=== PATIENT | female | born 1945 | race Caucasian/White ===

== ENCOUNTER → 2017-10-13 | Outpatient (CLI) | payer MEDICARE, BC ==
[2014-08-19 21:38] VITALS: BP 104/55
--- NOTE | 2017-10-13 09:20 | RAD ---
DATE: October 13, 2017 EXAM: MAMMO BAILEY SCREENING BILATERAL HISTORY: Routine Screening COMPARISON: October 11, 2016 This study was interpreted with the benefit of Computerized Aided Detection (CAD). Tomographic 3-D views are obtained. The breast parenchyma shows scattered fibroglandular densities. Breast parenchyma level B. FINDINGS: There is no suspicious findings. IMPRESSION: Normal. BI-RADS CATEGORY: 1 NEGATIVE RECOMMENDED FOLLOW-UP: 12M 12 MONTH FOLLOW-UP PQRS compliance statement: Patient information was entered into a reminder system with a target due date October 24, 2018 for the next mammogram. Mammography is a sensitive method for finding small breast cancers, but it does not detect them all and is not a substitute for careful clinical examination. A negative mammogram does not negate a clinically suspicious finding and should not result in delay in biopsying a clinically suspicious abnormality. "Our facility is accredited by the [employer] Mammography [employer]."
== END | disposition home or self-care (01) ==
LOC: MAMMO 07:55
PROVIDERS: ATTEND Internal Medicine Hematology & Oncology
DX: Z12.31 Encounter for screening mammogram for malignant neoplasm of breast (principal); F17.200 Nicotine dependence, unspecified, uncomplicated; Z85.9 Personal history of malignant neoplasm, unspecified
CPT/HCPCS: 77063; G0202; 77067

== ENCOUNTER → 2018-02-16 | Outpatient (CLI) | payer MEDICARE, BC ==
[2014-08-19 21:38] VITALS: BP 104/55
--- NOTE | 2018-02-16 12:15 | RAD ---
Bone densitometry scan, 02/16/2018: History: Ovarian failure, osteopenia The lumbar spine and right hip were examined utilizing a DEXA technique. The bone mineral density in the lumbar spine as measured from the L1-L4 levels is 0.79 g/sq cm. This yields a T score of -3.2 compatible with osteoporosis. This has worsened since the 02/13/2008 study at which time the lumbar spine T score was - 2.5. The total T score at the right hip is -3.0. This is compatible with osteoporosis. On the previous exam the average hip T score was -1.8 IMPRESSION: Worsening osteoporosis.
== END | disposition home or self-care (01) ==
LOC: DXRAD 10:45
PROVIDERS: ATTEND Specialist
DX: F33.1 Major depressive disorder, recurrent, moderate (principal); M81.0 Age-related osteoporosis without current pathological fracture; E28.39 Other primary ovarian failure
CPT/HCPCS: 77080

== ENCOUNTER → 2018-03-30 | Outpatient (CLI) | payer MEDICARE, BC ==
[2014-08-19 21:38] VITALS: BP 104/55
--- NOTE | 2018-03-30 16:59 | RAD ---
EXAM: Left lower extremity venous Doppler sonogram. HISTORY: Pain. TECHNIQUE: Wiggins scale and color Doppler sonographic evaluation of the left lower extremity veins with spectral waveform analysis was performed. FINDINGS: There is normal color flow, normal compressibility and there are normal spectral waveforms in the common femoral, superficial femoral, popliteal, posterior tibial and greater saphenous veins. There is a 6.4 x 3.8 x 0.8 cm complex left popliteal cyst. IMPRESSION: 1. No Doppler evidence of lower extremity deep venous thrombosis. 2. Complex left Mosley's cyst measuring 6.4 cm in maximum dimension. Electronically signed by: Remedios Puentes MD (03/30/2018 4:56 PM) [facility]
== END | disposition home or self-care (01) ==
LOC: US 15:58
PROVIDERS: ATTEND Nurse Practitioner Family
DX: M79.89 Other specified soft tissue disorders (principal); M71.22 Synovial cyst of popliteal space [Baker], left knee
CPT/HCPCS: 93971

== ENCOUNTER → 2018-04-12 | Outpatient (CLI) | payer MEDICARE, BC ==
[2014-08-19 21:38] VITALS: BP 104/55
--- NOTE | 2018-04-12 12:41 | RAD ---
PQRS Compliance Statement: One or more of the following individualized dose reduction techniques were utilized for this examination: 1. Automated exposure control 2. Adjustment of the mA and/or kV according to patient size 3. Use of iterative reconstruction technique CT chest without contrast 04/12/2018 INDICATION: Lung nodules. COMPARISON: CT chest December 10, 2013. TECHNIQUE: Multiple axial CT images of the chest were obtained without intravenous contrast. Coronal and sagittal reformats are provided. FINDINGS: The thyroid gland is normal in appearance. There are no pathologically enlarged axillary, mediastinal or hilar lymph nodes. Heart size is within normal limits. There is no pericardial effusion. Thoracic aorta is normal in course and caliber. There is mild centrilobular pulmonary emphysema. There is a 3 mm solid noncalcified pleura nodule in the left upper lobe (series 2, image 58) patchy groundglass changes are noted in the right middle lobe. There is focal consolidation involving the superior segment of the right lower lobe which may represent postobstructive atelectasis from endobronchial filling defects suggestive of mucous plugging. There is bronchial wall thickening compatible with bronchitis. There is an oval solid noncalcified pulmonary nodule measuring 9 mm in the right lower lobe (series 2, image 214). There are no pleural effusions. No pulmonary vascular congestion or pneumothorax. Evaluation of the solid abdominal viscera is limited by lack of intravenous contrast. Visualized portions of the upper abdomen are normal. Spinal augmentation changes are identified at T8. No suspicious osseous abnormality is visualized. IMPRESSION: 1. Consolidation involving the superior segment right lower lobe is favored to be secondary to postobstructive atelectasis from endobronchial nodules most suggestive of mucous plugging. Short-term follow-up chest CT is recommended to exclude an endobronchial malignancy. 2. No pathologically enlarged thoracic lymph nodes are visualized. 3. 9 mm solid noncalcified pulmonary nodule is identified in the right lower lobe. This finding is stable and favor to represent benign etiology given stability. No new or enlarging solid noncalcified pulmonary nodules are visualized. Electronically signed by: Mame Hatfield MD (04/12/2018 12:37 PM) [id number]
== END | disposition home or self-care (01) ==
LOC: CT 10:45
PROVIDERS: ATTEND Specialist
DX: J18.1 Lobar pneumonia, unspecified organism (principal); J98.4 Other disorders of lung
CPT/HCPCS: 71250

== ENCOUNTER → 2018-06-16 | Outpatient (CLI) | payer MEDICARE, BC ==
[2014-08-19 21:38] VITALS: BP 104/55
--- NOTE | 2018-06-16 15:03 | RAD ---
Examination: Ultrasound left antecubital fossa region HISTORY: History of lump in the left antecubital fossa region COMPARISON: None available FINDINGS: In the region of perceived lump in the left antecubital fossa no definite evidence of mass or lesion identified IMPRESSION: No definite evidence of mass lesion identified in the visualized left antecubital fossa region. Electronically signed by: Nasir Day MD (06/16/2018 3:00 PM) [id number]
== END | disposition home or self-care (01) ==
LOC: US 12:56
PROVIDERS: ATTEND Specialist
DX: R22.32 Localized swelling, mass and lump, left upper limb (principal); Z87.891 Personal history of nicotine dependence
CPT/HCPCS: 76881

== ENCOUNTER → 2018-10-17 | Outpatient (CLI) | payer MEDICARE, BC ==
[2014-08-19 21:38] VITALS: BP 104/55
--- NOTE | 2018-10-18 13:46 | RAD ---
DATE: October 17, 2018 EXAM: MAMMO BAILEY SCREENING BILATERAL HISTORY: Screening study. COMPARISON: 2016 and 2017 This study was interpreted with the benefit of Computerized Aided Detection (CAD). 2-D digital mammographic views of both breasts were performed in the CC and MLO projections. 3-D digital tomosynthesis images of both breasts were performed in the CC and MLO projections and reviewed on a computer workstation. FINDINGS: Breast Density: SCATTERED The breast parenchyma shows scattered fibroglandular densities. Breast parenchyma level B.. There are no dominant suspicious masses, suspicious microcalcifications or evidence of architectural distortion. IMPRESSION: No mammographic indicators for malignancy. BI-RADS CATEGORY: 1 NEGATIVE RECOMMENDED FOLLOW-UP: 12M 12 MONTH FOLLOW-UP PQRS compliance statement: Patient information was entered into a reminder system with a target due date October 18, 2019 for the next mammogram. Mammography is a sensitive method for finding small breast cancers, but it does not detect them all and is not a substitute for careful clinical examination. A negative mammogram does not negate a clinically suspicious finding and should not result in delay in biopsying a clinically suspicious abnormality. "Our facility is accredited by the [employer] Mammography Program." The patient's breast density may affect the ability of mammography to detect breast cancer. There are 4 categories of breast density, A, B, C and D. Breast density A means that most of the breast tissue is replaced with adipose tissue and therefore is not dense. Breast density B means that the breast tissue is mildly dense and scattered. Breast density C means that the breast tissue is heterogeneously dense. Breast density D means that the breast tissue is very dense. Breast densities especially C and D may decrease the sensitivity of mammography to detect breast cancer. Therefore, the patient may benefit from 3-D breast mammography (3D breast tomography) as a part of their screening mammogram. Insurance may or may not pay for this additional imaging. The patient's breast density based on today's mammogram is category B.
== END | disposition home or self-care (01) ==
LOC: MAMMO 11:34
PROVIDERS: ATTEND Internal Medicine Hematology & Oncology
DX: Z12.31 Encounter for screening mammogram for malignant neoplasm of breast (principal)
CPT/HCPCS: 77063; 77067

== ENCOUNTER 2019-08-10 11:19 | Emergency (ER) | payer MEDICARE, BC ==
[2019-08-10 11:35] VITALS: BP 156/82
[2019-08-10] MEDS ORDERED: IV NORMAL SALINE 1,000ML 1,000 ML IV SCH (11:40)
--- NOTE | 2019-08-10 12:12 | RAD ---
EXAM: Head CT without contrast. HISTORY: Headache. TECHNIQUE: Computed tomographic images of the head were obtained without contrast. *One or more of the following individualized dose reduction techniques were utilized for this examination: 1. Automated exposure control. 2. Adjustment of the mA and/or kV according to patient size. 3. Use of iterative reconstruction technique. COMPARISON: None. FINDINGS: There is no acute or subacute extra-axial or intraparenchymal hemorrhage. There is no mass effect or midline shift. There is no hydrocephalus. There are areas of decreased attenuation within the cerebral white matter, nonspecific and likely related to chronic small vessel disease. There is cerebral volume loss. The visualized portions of the orbits, paranasal sinuses and mastoid air cells are unremarkable. No suspicious calvarial lesion is seen. IMPRESSION: 1. No acute intracranial finding. Note is made that MRI is more sensitive for acute infarction. 2. Decreased aeration within the cerebral white matter, likely due to chronic small vessel disease. 3. Cerebral volume loss. Electronically signed by: Remedios Puentes MD (08/10/2019 12:09 PM) [email or web address]
[2019-08-10 12:17] LABS: HEMOGLOBIN ISTAT 12.6 gm/dL; POTASSIUM ISTAT 4.5 mmol/L (3.5-5.0)
[2019-08-10 12:23] LABS: BASO % 1 % (0-3); EOS # 0.1 x10^3/uL (0.0-0.7); EOS % 2 % (0-3); HEMATOCRIT 37.5 % (36.0-47.0); HEMOGLOBIN 12.4 g/dL (12.0-15.5); LYMPH % 15 % (24-48); MEAN CORPUSCULAR HEMOGLOBIN 31 pg (25-35); MEAN CORPUSCULAR HGB CONC 33 g/dL (31-37); MEAN CORPUSCULAR VOLUME 94 fL (79-100); MONO # 0.7 x10^3/uL (0.0-1.1); MONO % 11 % (0-9); NEUT # 4.8 x10^3uL (1.8-7.7); NEUT % 71 % (31-73); PLATELET COUNT 301 x10^3/uL (140-400); RED CELL DISTRIBUTION WIDTH 13.9 % (11.5-14.5); WHITE BLOOD COUNT 6.7 x10^3/uL (4.0-11.0)
--- NOTE | 2019-08-10 12:47 | RAD ---
EXAM: Chest, 2 views. HISTORY: Weakness. COMPARISON: 04/12/2018 FINDINGS: 2 views of the chest are obtained. There is suspected right middle lobe and lingular scarring or atelectasis. There is suspected blunting of the right costophrenic angle due to basilar pleural proximal scarring. There is no infiltrate, pleural effusion or pneumothorax. The heart is normal in size. There is a midthoracic wedge compression fracture with vertebroplasty changes. IMPRESSION: 1. Suspected right middle lobe and lingular scarring or atelectasis. 2. Suspected right basilar pleural-parenchymal scarring. Electronically signed by: Remedios Puentes MD (08/10/2019 12:44 PM) [place] [id number]
--- NOTE | 2019-08-10 12:54 | PHYS DOC ---
Past History Past Medical History: Anxiety, Cancer, GERD Additional Past Medical Histor: non-Hodgkin's lymphoma Past Surgical History: Cancer Surgery Additional Past Surgical Histo: left masectomy/lymphectomy Smoking: Non-smoker Alcohol Use: None Drug Use: None Adult General Chief Complaint Chief Complaint: WEAKNESS/GENERALIZED HPI HPI Patient is a 73-year-old female presents with fatigue over the past several months, she has had headaches in the forehead for the past week continuously. She has had balance issues with almost following twice in the past 2 weeks. Her 's report she has wheezing at night. Patient denies any wheezing during the daytime. She is noted a decrease in appetite over the past several months. No recent changes in medicines. No chest pain or palpitations. No coughing. No fevers. No swelling in legs feet or ankles. She has remote history of non-Hodgkin's lymphoma in 2005, had a lymph node in the left arm removed and 25 radiation treatments She is here because she cannot be seen by her primary care physician for another 5 days.[] Review of Systems Review of Systems Constitutional: Denies fever or chills [] Eyes: Denies change in visual acuity, redness, or eye pain [] HENT: Denies nasal congestion or sore throat [] Respiratory: Denies cough or shortness of breath [] Cardiovascular: No chest pain or palpitations[] GI: Denies abdominal pain, nausea, vomiting, bloody stools or diarrhea [] : Denies dysuria or hematuria [] Musculoskeletal: Denies back pain or joint pain [] Integument: Denies rash or skin lesions [] Neurologic: See history of present illness[] Endocrine: Denies polyuria or polydipsia [] All other systems were reviewed and found to be within normal limits, except as documented in this note. Current Medications Current Medications Current Medications Medications (Trade) Dose Ordered Sig/Ashly Start Time Stop Time Status Last Admin Dose Admin Sodium Chloride 1,000 ml @ 100 mls/hr Q10H 08/10/19 11:40 08/10/19 21:39 08/10/19 11:40 100 MLS/HR Allergies Allergies Allergies Coded Allergies Type Severity Reaction Last Updated Verified Varenicline Allergy Intermediate Unknown 08/19/14 Yes Physical Exam Physical Exam Constitutional: Well developed, well nourished, no acute distress, non-toxic appearance. [] HENT: Normocephalic, atraumatic, bilateral external ears normal, oropharynx moist, no oral exudates, nose normal. [] Eyes: PERRLA, EOMI, conjunctiva normal, no discharge. [] Neck: Normal range of motion, no tenderness, supple, no stridor. [] Cardiovascular:Heart rate regular rhythm, no murmur [] Lungs & Thorax: Bilateral breath sounds clear to auscultation [] Abdomen: Bowel sounds normal, soft, no tenderness, no masses, no pulsatile masses. [] Skin: Warm, dry, no erythema, no rash. [] Back: No tenderness, no CVA tenderness. [] Extremities: No tenderness, no cyanosis, no clubbing, ROM intact, no edema. [] Neurologic: Alert and oriented X 3, normal motor function, normal sensory function, no focal deficits noted. [] Psychologic: Affect normal, judgement normal, mood normal. [] Current Patient Data Vital Signs Vital Signs Date Time Temp Pulse Resp B/P (MAP) Pulse Ox O2 Delivery O2 Flow Rate FiO2 08/10/19 11:35 99.4 76 18 93 Room Air Lab Results Laboratory Tests Test 08/10/19 11:56 POC Hemoglobin 12.6 gm/dL POC Hematocrit 37 % POC Sodium 135 mmol/L (135-145) POC Potassium 4.5 mmol/L (3.5-5.0) POC Chloride 98 mmol/L (98-110) POC Total CO2 28 mmol/L (23-32) Anion Gap 14 mmol/L (6-14) POC Blood Urea Nitrogen 6 mg/dL (8-26) L POC Creatinine 0.7 mg/dL (0.5-1.4) Glucose Level 96 mg/dL (60-99) POC Ionized Calcium (Nova) 1.11 mmol/L (1.13-1.32) L POC Troponin I 0.00 ng/ml (<0.08) EKG EKG EKG shows sinus rhythm at 67 bpm, normal axis, QTC of 438 ms, no ST lesions. Interpreted by me at 1150.[] Radiology/Procedures Radiology/Procedures PROCEDURE: CHEST PA & LATERAL EXAM: Chest, 2 views. HISTORY: Weakness. COMPARISON: 04/12/2018 FINDINGS: 2 views of the chest are obtained. There is suspected right middle lobe and lingular scarring or atelectasis. There is suspected blunting of the right costophrenic angle due to basilar pleural proximal scarring. There is no infiltrate, pleural effusion or pneumothorax. The heart is normal in size. There is a midthoracic wedge compression fracture with vertebroplasty changes. IMPRESSION: 1. Suspected right middle lobe and lingular scarring or atelectasis. 2. Suspected right basilar pleural-parenchymal scarring. PROCEDURE: CT HEAD WO CONTRAST EXAM: Head CT without contrast. HISTORY: Headache. TECHNIQUE: Computed tomographic images of the head were obtained without contrast. *One or more of the following individualized dose reduction techniques were utilized for this examination: 1. Automated exposure control. 2. Adjustment of the mA and/or kV according to patient size. 3. Use of iterative reconstruction technique. COMPARISON: None. FINDINGS: There is no acute or subacute extra-axial or intraparenchymal hemorrhage. There is no mass effect or midline shift. There is no hydrocephalus. There are areas of decreased attenuation within the cerebral white matter, nonspecific and likely related to chronic small vessel disease. There is cerebral volume loss. The visualized portions of the orbits, paranasal sinuses and mastoid air cells are unremarkable. No suspicious calvarial lesion is seen. IMPRESSION: 1. No acute intracranial finding. Note is made that MRI is more sensitive for acute infarction. 2. Decreased aeration within the cerebral white matter, likely due to chronic small vessel disease. 3. Cerebral volume loss.[] Course & Med Decision Making Course & Med Decision Making Pertinent Labs and Imaging studies reviewed. (See chart for details) ED course: Patient arrived, was placed in bed, and tolerated exam well. She was transported to and from radiology with any complications. After the return of the lab and imaging findings, these were discussed with the patient and family who voiced understanding. All questions were answered. She was discharged in improved condition. Medical decision making: Patient with malaise and a headache that has been present for a while. There is no significant systemic toxicity. No evidence of intracranial mass or bleed. No evidence of an acute coronary syndrome. Patient appears to have a urinary tract infection although this may be a contaminated specimen however will treat for it. She will need to follow-up with her regular doctor in 5 days as scheduled.[] Dragon Disclaimer Dragon Disclaimer This electronic medical record was generated, in whole or in part, using a voice recognition dictation system. Departure Departure: Impression: Primary Impression: Malaise and fatigue Additional Impressions: Headache Urinary tract infection Disposition: 01 HOME, SELF-CARE Condition: IMPROVED Referrals: LISSETH BERNARDO MD (PCP) Follow-up in 2 days Patient Instructions: Fatigue, General Headache Without Cause, Urinary Tract Infection Additional Instructions: Follow-up with your regular doctor as scheduled. Drink plenty of fluids. Return to the ER if worsening pain or any other concerns. Scripts Meloxicam (MELOXICAM) 7.5 Mg Tablet 7.5 MG PO DAILY for PAIN, #20 TAB Prov: BRAYDON LIEBERMAN DO 08/10/19 Sulfamethoxazole/Trimethoprim (BACTRIM DS TABLET) 1 Each Tablet 1 TAB PO BID for urinary tract infection, #20 TAB Prov: BRAYDON LIEBERMAN DO 08/10/19 Problem Qualifiers Additional Impressions: Headache Headache type: unspecified Headache chronicity pattern: acute headache Intractability: not intractable Qualified Codes: R51 - Headache Urinary tract infection Urinary tract infection type: site unspecified Hematuria presence: without hematuria Qualified Codes: N39.0 - Urinary tract infection, site not specified BRAYDON LIEBERMAN DO Aug 10, 2019 12:54
[2019-08-10 13:53] LABS: ALBUMIN 3.8 g/dL (3.4-5.0); TOTAL BILIRUBIN 0.6 mg/dL (0.2-1.0); TOTAL PROTEIN 7.7 g/dL (6.4-8.2)
[2019-08-10 13:54] LABS: MAGNESIUM 2.1 mg/dL (1.8-2.4)
[2019-08-10 15:04] LABS: BILIRUBIN,URINE NEG (NEG); CLARITY,URINE HAZY; COLOR,URINE YELLOW; GLUCOSE,URINE NEG (NEG)
[2019-08-10 15:05] LABS: BACTERIA,URINE MOD /HPF (0-FEW); NITRITE,URINE NEG (NEG); RBC,URINE OCC /HPF (0-2); SQUAMOUS EPITHELIAL CELL,UR MOD /LPF; UROBILINOGEN,URINE 1 mg/dL (0.2 mg/dL)
[2019-08-10] MEDS ORDERED: MELO7.5T29 PO (15:11)
[2019-08-10] MEDS ORDERED: SULF1TAB24 PO (15:11)
--- NOTE | 2019-08-10 15:23 | EKG ---
[address] [address] Test Date: 2019-08-10 Test Time: 11:49:53 Pat Name: LAQUITA LAINEZ Department: Room: Gender: F Transmission Tester: JOHANNA : 1945 Requested By: BRAYDON LIEBERMAN Order Number: [id number] Reading MD: Jerad Stephens MD Measurements Intervals [place] Rate: 67 P: 58 [place]: 164 QRS: 82 QRSD: 90 T: 49 QT: 412 QTc: 438 Interpretive Statements SINUS RHYTHM NON-SPECIFIC ST/T CHANGES Electronically Signed On 08-21-2019 9:35:36 CDT by Jerad Stephens MD
== END 2019-08-10 15:21 | disposition home or self-care (01) ==
LOC: ER 11:19
DX: N39.0 Urinary tract infection, site not specified (principal); R51 Headache; R53.83 Other fatigue; R53.81 Other malaise; K21.9 Gastro-esophageal reflux disease without esophagitis; Z88.1 Allergy status to other antibiotic agents; Z85.72 Personal history of non-Hodgkin lymphomas
CPT/HCPCS: 36415; 70450; 71046; 80047; 80076; 81001; 83690; 83735; 83880; 84443; 84484; 85025; 85610; 85730; 87086; 93005; 99285-25; J7030

== ENCOUNTER → 2019-11-09 | Outpatient (CLI) | payer MEDICARE, BC ==
[~2019-11-09] MED LIST: MELO7.5T29 PO; SULF1TAB24 PO
--- NOTE | 2019-11-09 14:38 | RAD ---
Examination: BREAST RIGHT History: Abnormal mammogram Comparison/Correlation: 10/01/2015, 10/11/2016, 10/13/2017, 10/17/2018, 10/18/2019 screen mammographic exam performed at an outside institution Findings: Ultrasound imaging was performed through the 4:00 to 7:00 region of the right breast. No mass identified corresponding with mammographic mass evident. Impression: BI-RADS Category 3-probably benign. Six-month follow-up mammographic and possibly ultrasound examination of the right breast is recommended to assess stability. The very small mass present as been noted on prior exams including 2016 with very slow growth. Electronically signed by: Nam Rubio MD (11/09/2019 2:35 PM) [facility]
== END | disposition home or self-care (01) ==
LOC: US 13:00
PROVIDERS: ATTEND Specialist
DX: R92.2 Inconclusive mammogram (principal)
CPT/HCPCS: 76641

== ENCOUNTER → 2020-04-18 | Day surgery (SDC) | payer MEDICARE, BC ==
[~2020-04-18] MED LIST changes: +ALBU2.5V8 IH; +CLON0.5T4 PO; +FLUT16SP21 NS; +IV RINGERS SOLUTION,LACTATED 1,000 ML IV SCH; +OMEP20CA16 PO; +ONDANSETRON PF 4 MG/2 ML VIAL. IV PRN; +OXYB5TAB10 PO; +PROPOFOL 10,000 MCG/ML (20ML) VIAL IV ONE; +SERT100T PO; +SODIUM PHOSPHATES 19/7GM 133 ML ENEMA. PR ONE
[2020-04-18 14:21] VITALS: BP 114/57
--- NOTE | 2020-04-22 14:07 | PATHOLOGY ---
[facility] Accession Number: [id number] . 01 Material submitted: . PART A: gastrointestinal site - ANTRUM GASTRITIS PART B: colon - DESCENDING POLYP. Modifiers: descending . 02 Diagnosis: A. Gastric biopsies, antrum: - Chronic gastritis, mild. . B. Colon biopsies, descending colon polyp: - Tubular adenoma. (JPM:maura; 04/22/2020) QMS 04/22/2020 0920 Local . 02 Comment: Sections of the gastric antral biopsy show congestion and mild chronic inflammation. A properly controlled immunoperoxidase stain for Helicobacter is negative for Helicobacter organisms. . Sections of the descending colon biopsy reveal a tubular adenoma showing no high grade dysplasia or evidence of malignancy. (JPM:maura; 04/22/2020) . Special stain performed: Immunoperoxidase stain for Helicobacter on A1 . 02 Electronically signed: . Roman Rodriguez MD, Pathologist NPI- [id number] . 01 Gross description: . A. The specimen is received in formalin labeled "Aida, Michelle, antrum/gastritis was "and consists of a fragment of starr tissue measuring 0.3 x 0.3 x 0.2 cm which are entirely submitted in A1. . B. The specimen is received in formalin labeled "Leslie, Michelle, descending colon" and consists of multiple fragments of starr tissue measuring 0.9 x 0.3 x 0.2 cm in aggregate which are entirely submitted in B1. (KELSEY; 04/21/2020) JFQ/JFQ 04/21/2020 1500 Local . 02 Pathologist provided ICD-10: K29.50, D12.4 . 02 CPT . 106954, 344651, N06083 Specimen Comment: A courtesy copy of this report has been sent to [phone] Specimen Comment: Report sent to Performed at: [address] [facility] [address], [place] [id number] MD Gabe Mullen MD Phone: [phone] Performed at: 02 [facility] [address] [place], [place] [id number] MD Roman Rodriguez MD Phone: [phone]
== END | disposition home or self-care (01) ==
LOC: SURG 11:13
PROVIDERS: ATTEND Internal Medicine Gastroenterology
DX: R19.5 Other fecal abnormalities (principal); D12.4 Benign neoplasm of descending colon; K64.0 First degree hemorrhoids; K57.30 Diverticulosis of large intestine without perforation or abscess without bleeding; K29.50 Unspecified chronic gastritis without bleeding; K63.89 Other specified diseases of intestine; K31.89 Other diseases of stomach and duodenum; K44.9 Diaphragmatic hernia without obstruction or gangrene; K22.2 Esophageal obstruction; J44.9 Chronic obstructive pulmonary disease, unspecified; K21.9 Gastro-esophageal reflux disease without esophagitis; M81.0 Age-related osteoporosis without current pathological fracture; Z98.890 Other specified postprocedural states; Z79.899 Other long term (current) drug therapy; Z88.8 Allergy status to other drugs, medicaments and biological substances
CPT/HCPCS: 43239; 43450; 45381; 45385; 88305; 88342; J2704; J7120

== ENCOUNTER → 2020-06-25 | Outpatient (CLI) | payer MEDICARE, BC ==
[2020-04-18 14:21] VITALS: BP 114/57
[~2020-06-25] MED LIST changes: -IV RINGERS SOLUTION,LACTATED 1,000 ML IV SCH; -ONDANSETRON PF 4 MG/2 ML VIAL. IV PRN; -PROPOFOL 10,000 MCG/ML (20ML) VIAL IV ONE; -SODIUM PHOSPHATES 19/7GM 133 ML ENEMA. PR ONE
--- NOTE | 2020-06-25 16:00 | RAD ---
EXAM: UNILATERAL RIGHT DIGITAL DIAGNOSTIC MAMMOGRAPHY. HISTORY: Six-month follow-up right breast nodule. TECHNIQUE: Bilateral full field digital images were obtained in CC and MLO projections. Computer-aided detection was applied. COMPARISON: 10/18/2019. COMPOSITION: B. There are scattered areas of fibroglandular density. FINDINGS: The nodule of concern inferiorly in the posterior third on the right is no longer seen and may represent a small cyst that resolved. There are no suspicious masses, microcalcifications or architectural distortion. The parenchymal pattern is stable. BI-RADS CATEGORY: 2: Benign. RECOMMENDATION: 1. Resume bilateral screening mammography in October 2020. Electronically signed by: Muriel Fernandez MD (06/25/2020 3:57 PM) [id number]
== END | disposition home or self-care (01) ==
LOC: MAMMO 13:58
PROVIDERS: ATTEND Specialist
DX: R92.2 Inconclusive mammogram (principal); Z85.3 Personal history of malignant neoplasm of breast
CPT/HCPCS: 77065

== ENCOUNTER → 2020-07-18 | Outpatient (CLI) | payer MEDICARE, BC ==
[2020-04-18 14:21] VITALS: BP 114/57
--- NOTE | 2020-07-18 16:15 | RAD ---
EXAM: Left foot, 3 views. HISTORY: Pain. COMPARISON: None. FINDINGS: 3 views of the left foot are obtained. There is no fracture, dislocation or subluxation. The alignment and joint spaces are unremarkable. There is no suspicious osseous lesion. There is no foreign body. IMPRESSION: No acute osseous finding. Electronically signed by: Remedios Puentes MD (07/18/2020 4:12 PM) [id number]
== END | disposition home or self-care (01) ==
LOC: DXRAD 15:50
PROVIDERS: ATTEND Specialist
DX: M79.672 Pain in left foot (principal)
CPT/HCPCS: 73630

== ENCOUNTER → 2020-09-18 | Outpatient (CLI) | payer MEDICARE, BC ==
[2020-04-18 14:21] VITALS: BP 114/57
--- NOTE | 2020-09-18 12:25 | RAD ---
Bilateral lower extremity arterial duplex ultrasound study without comparison for leg pain, toe pain on the left, history of smoking for 50 years. Technique an findings: Real-time grayscale and color and spectral Doppler evaluation of the arteries of both lower extremities is performed. All arteries of both lower 70s are patent. There is mild multifocal atherosclerosis which appears slightly more prominent in the runoff vessels. There are triphasic waveforms on the right involving the common femoral, femoral, popliteal, posterior tibial, anterior tibial and dorsalis pedis arteries, with biphasic flow in the right deep femoral and right peroneal artery. On the left waveforms are triphasic all vessels save for the left deep femoral which is biphasic. No focal velocity elevations are identified to suggest focal hemodynamically significant stenosis. IMPRESSION: 1. Mild multifocal atherosclerosis with no sonographic evidence of hemodynamically significant stenosis. Electronically signed by: René Turner MD (09/18/2020 12:22 PM) [id number]
== END ==
LOC: US 10:59
PROVIDERS: ATTEND Specialist
DX: I70.203 Unspecified atherosclerosis of native arteries of extremities, bilateral legs (principal); Z87.891 Personal history of nicotine dependence
CPT/HCPCS: 93925

== ENCOUNTER → 2020-11-11 | Outpatient (CLI) | payer MEDICARE, BC ==
[2020-04-18 14:21] VITALS: BP 114/57
[~2020-11-11] MED LIST changes: +BENZ-8 PO; +CYCL-331 PO; +DIPH25CA58 PO; +TIOT18CA IH; +[UNRECOGNIZED DRUG - CODE] IV
--- NOTE | 2020-11-11 15:03 | RAD ---
EXAM: Bilateral digital screening mammogram with tomosynthesis. HISTORY: 74-year-old female presents for screening mammography. TECHNIQUE: Full-field digital craniocaudal and mediolateral oblique 2D and 3D tomosynthesis images of both breasts are obtained for evaluation. Computer aided detection was applied. COMPARISON: 06/25/2020, 10/17/2018 BREAST PARENCHYMAL DENSITY: Level B - Scattered fibroglandular densities. FINDINGS: There is no new suspicious mass, microcalcification or region of architectural distortion. IMPRESSION: BI-RADS Category 2: Benign finding(s). RECOMMENDATION: Annual mammography is recommended. If your mammogram demonstrates that you have dense breast tissue, which could hide abnormalities, and if you have other risk factors for breast cancer that have been identified, you might benefit from s upplemental screening tests that may be suggested by your ordering physician. Dense breast tissue, i n and of itself, is a relatively common condition. This information is not provided to cause undue c oncern, but rather to raise your awareness and to promote discussion with your physician regarding th e presence of other risk factors, in addition to dense breast tissue. A report of your mammography re sults will be sent to you and your physician. You should contact your physician if you have any ques tions or concerns regarding this report. Mammography is a sensitive method for finding small breast cancers, but it does not detect them all a nd is not a substitute for careful clinical examination. A negative mammogram does not negate a clin ically suspicious finding and should not result in delay in biopsying a clinically suspicious abnorma lity. PQRS compliance statement - Patient information was entered into a reminder system with a target due date for the next mammogram. "Our facility is accredited by the [employer] Mammography Program." Electronically signed by: Remedios Puentes MD (11/11/2020 3:00 PM) [id number]
== END ==
LOC: MAMMO 13:27
PROVIDERS: ATTEND Specialist
DX: Z12.31 Encounter for screening mammogram for malignant neoplasm of breast (principal)
CPT/HCPCS: 77063; 77067

== ENCOUNTER → 2021-01-22 | Outpatient (CLI) | payer MEDICARE, BC ==
[2020-04-18 14:21] VITALS: BP 114/57
[~2021-01-22] MED LIST changes: -BENZ-8 PO; -CYCL-331 PO; -DIPH25CA58 PO; -TIOT18CA IH; -[UNRECOGNIZED DRUG - CODE] IV
--- NOTE | 2021-01-22 14:50 | RAD ---
EXAM: CT Chest without IV contrast INDICATION: Reason: FOLLOW UP PULMONARY NODULE / Spl. Instructions: / History: TECHNIQUE: Multi-detector row CT images were acquired from the thoracic inlet through the upper abdo men without the use of IV contrast. Sagittal and coronal images were acquired from the transaxial gabrielle a. All CT scans performed at this facility utilize dose optimization techniques as appropriate to the exam, including the following: Automated exposure control and adjustment of the mA and/or KV accordi ng to patient size (this includes techniques or standardized protocols for targeted exams where dose is indication/reason for exam). COMPARISON: CT chest without IV contrast 04/12/2018 FINDINGS: The absence of IV contrast limits evaluation of soft tissue pathology. CARDIOVASCULAR: Unremarkable MEDIASTINUM & EMANUEL: No adenopathy or masses. LUNGS: Right middle lobe and lingula atelectasis is present along with centrilobular pattern emphysem a with lung hyperinflation. Tree-in-bud opacities in the posterior basal segment right lower lobe, escobar ggesting minimal pneumonitis. In the anterior basal segment right lower lobe is a 9 x 5 mm elongated nodule, best illustrated on image 90 of sagittal series 4 and axial image 73 of series 2. This is unc hanged. PLEURAL SPACE: No pleural effusions or pneumothorax. OSSEOUS & SOFT TISSUE: Vertebroplasty cement at T8. Mild retrolisthesis of L1 on L2, included in the field of view. No acute fracture or aggressive appearing bony lesions. ABDOMEN: The visualized portions of the upper abdomen are unremarkable. IMPRESSION: The noncalcified nodule in the right lower lobe measuring 9 mm has not changed in over 2 years and nelson s benign morphologic features. It does not require additional imaging follow-up. However, patient colvin s have stigmata of smoking-related lung disease (emphysema) that could be a risk factor for lung canc er. If appropriate, consider enrolling the patient in a CT lung cancer screening program. Electronically signed by: Leona Olson MD (01/22/2021 2:48 PM) [id number]
== END ==
LOC: CT 11:31
PROVIDERS: ATTEND Specialist
DX: R91.1 Solitary pulmonary nodule (principal); J43.2 Centrilobular emphysema; J98.11 Atelectasis; M43.16 Spondylolisthesis, lumbar region
CPT/HCPCS: 71250

== ENCOUNTER 2021-03-09 13:34 | Inpatient (IN) | payer MEDICARE, BC ==
[~2021-03-09] VITALS: Ht 170.2 cm; Wt 62.0 kg
--- NOTE | 2021-03-09 14:28 | EKG ---
[address] [address] Test Date: 2021-03-09 Test Time: 14:09:27 Pat Name: LAQUITA LAINEZ Department: Room: Gender: F Play Reader: SILAS : 1945 Requested By: ANKIT CARL Order Number: [id number] Reading MD: Measurements Intervals [place] Rate: 69 P: 71 NC: 176 QRS: 75 QRSD: 92 T: 44 QT: 418 QTc: 454 Interpretive Statements SINUS RHYTHM LOW LIMB LEAD VOLTAGE NO SPECIFIC ECG ABNORMALITIES RI6.02 No previous ECG available for comparison
[2021-03-09] MEDS ORDERED: IPRATRPIUM/ALBUTEROL 0.5/2.5MG 3 ML NEBU. NEB ONE (14:30)
--- NOTE | 2021-03-09 14:34 | PHYS DOC ---
Past History Past Medical History: Anxiety, Cancer, COPD, Depression, GERD, Other Additional Past Medical Histor: Non hodgkins lymphoma, breast cancer, OAB Past Surgical History: Other Additional Past Surgical Histo: right wrist, breast surgery Smoking: Non-smoker Alcohol Use: Rarely Drug Use: None General Adult EDM: Chief Complaint: SHORTNESS OF BREATH HPI: HPI: 75-year-old female presents with shortness of breath. The patient has been feeling a bit more short of breath for over a week. She started feeling worse symptoms 4 days ago. She called her primary care physician who put her on some kind of antibiotic and steroids for couple of days. Patient has known COPD. She presents to the ER today because she feels even more short of breath. She has decreased exercise tolerance. She denies chest pain or diaphoresis. She thinks that she is wheezing when she breathes. She denies fever or chills. Review of Systems: Review of Systems: Constitutional: Denies fever or chills Eyes: Denies change in visual acuity HENT: Denies nasal congestion or sore throat Respiratory: Cough with shortness of breath Cardiovascular: Denies chest pain or edema GI: Denies abdominal pain, nausea, vomiting, bloody stools or diarrhea : Denies dysuria Musculoskeletal: Denies back pain or joint pain Integument: Denies rash Neurologic: Denies headache, focal weakness or sensory changes Endocrine: Denies polyuria or polydipsia Lymphatic: Denies swollen glands Psychiatric: Denies depression or anxiety Allergies: Allergies: Allergies Coded Allergies Type Severity Reaction Last Updated Verified varenicline Allergy Intermediate Unknown 08/19/14 Yes Physical Exam: PE: Constitutional: Well developed, well nourished, no acute distress, non-toxic appearance. [] HENT: Normocephalic, atraumatic, bilateral external ears normal, oropharynx moist, no oral exudates, nose normal. [] Eyes: PERRLA, EOMI, conjunctiva normal, no discharge. [] Neck: Normal range of motion, no tenderness, supple, no stridor. [] Cardiovascular:Heart rate regular rhythm, no murmur [] Lungs & Thorax: Bilateral breath sounds with expiratory wheezing at the bases [] Abdomen: Bowel sounds normal, soft, no tenderness, no masses, no pulsatile masses. [] Skin: Warm, dry, no erythema, no rash. [] Back: No tenderness, no CVA tenderness. [] Extremities: No tenderness, no cyanosis, no clubbing, ROM intact, no edema. [] Neurologic: Alert and oriented X 3, normal motor function, normal sensory function, no focal deficits noted. [] Psychologic: Affect normal, judgement normal, mood normal. [] Current Patient Data: Vital Signs: Vital Signs Date Time Temp Pulse Resp B/P (MAP) Pulse Ox O2 Delivery O2 Flow Rate FiO2 03/09/21 14:13 97.5 75 20 149/83 (105) 98 Room Air EKG: EKG: Sinus rhythm, rate 69, normal axis, no ST elevation or depression. [] Radiology/Procedures: Radiology/Procedures: [] Impressions: Single AP view of the chest. Comparison: 08/10/2019. Indication: Shortness of breath Findings: Lungs appear hyperexpanded. The heart is not enlarged. There is no pneumothorax or effusion. No air space or interstitial disease. Impression: 1. No acute cardiopulmonary process. Findings suggest COPD. Electronically signed by: Yordy Acosta MD (03/09/2021 2:54 PM) [id number] DICTATED AND SIGNED BY: YORDY ACOSTA MD DATE: 03/09/21 1454 CC: ANKIT CARL DO; LISSETH BERNARDO MD ~MTH0 0 Heart Score: C/O Chest Pain: No Risk Factors: Risk Factors: DM, Current or recent (<one month) smoker, HTN, HLP, family history of CAD, obesity. Risk Scores: Score 0 - 3: 2.5% MACE over next 6 weeks - Discharge Home Score 4 - 6: 20.3% MACE over next 6 weeks - Admit for Clinical Observation Score 7 - 10: 72.7% MACE over next 6 weeks - Early Invasive Strategies Course & Med Decision Making: Course & Med Decision Making Pertinent Labs and Imaging studies reviewed. (See chart for details) The patient's labs are unremarkable. We have given her 2 DuoNeb treatments. I have also ordered 125 of Solu-Medrol. The patient is still wheezing diffusely in both lungs. She is short of breath with exertion. I believe she would benefit from admission and further management of her COPD exacerbation. I spoke with Dr. Crook, the hospitalist and he has accepted the patient for admission. The patient is in agreement with this plan. [] Dragon Disclaimer: Dragon Disclaimer: This electronic medical record was generated, in whole or in part, using a voice recognition dictation system. Departure Departure: Impression: Primary Impression: COPD exacerbation Disposition: 02 SHORT TERM HOSPITAL Condition: STABLE Referrals: LISSETH BERNARDO MD (PCP) ANKIT CARL DO March 09, 2021 14:34
[2021-03-09 14:39] LABS: BASO # 0.1 x10^3/uL (0.0-0.2); BASO % 2 % (0-3); EOS # 0.3 x10^3/uL (0.0-0.7); EOS % 8 % (0-3); HEMATOCRIT 36.3 % (36.0-47.0); LYMPH # 1.5 x10^3/uL (1.0-4.8); LYMPH % 34 % (24-48); MEAN CORPUSCULAR HEMOGLOBIN 32 pg (25-35); MEAN CORPUSCULAR HGB CONC 33 g/dL (31-37); MEAN CORPUSCULAR VOLUME 95 fL (79-100); MONO # 0.5 x10^3/uL (0.0-1.1); MONO % 11 % (0-9); NEUT % 46 % (31-73); PLATELET COUNT 225 x10^3/uL (140-400); RED BLOOD COUNT 3.82 x10^6/uL (3.50-5.40); RED CELL DISTRIBUTION WIDTH 14.3 % (11.5-14.5); WHITE BLOOD COUNT 4.4 x10^3/uL (4.0-11.0)
[2021-03-09 14:53] LABS: CALCIUM 8.4 mg/dL (8.5-10.1); CREATININE 0.9 mg/dL (0.6-1.0); GFR 60.7; POTASSIUM 4.7 mmol/L (3.5-5.1)
--- NOTE | 2021-03-09 14:57 | RAD ---
Single AP view of the chest. Comparison: 08/10/2019. Indication: Shortness of breath Findings: Lungs appear hyperexpanded. The heart is not enlarged. There is no pneumothorax or effusion. No air space or interstitial disease. Impression: 1. No acute cardiopulmonary process. Findings suggest COPD. Electronically signed by: Adam Acosta MD (03/09/2021 2:54 PM) [id number]
[2021-03-09 15:02] LABS: CLARITY,URINE CLEAR; COLOR,URINE YELLOW
[2021-03-09 15:03] LABS: BACTERIA,URINE 0 /HPF (0-FEW); BILIRUBIN,URINE NEG (NEG); GLUCOSE,URINE NEG (NEG); NITRITE,URINE NEG (NEG); RBC,URINE 0 /HPF (0-2); SQUAMOUS EPITHELIAL CELL,UR OCC /LPF; UROBILINOGEN,URINE 0.2 mg/dL (0.2 mg/dL); WBC,URINE 0 /HPF (0-4)
[2021-03-09 15:04] LABS: ALBUMIN 3.4 g/dL (3.4-5.0); TOTAL BILIRUBIN 0.2 mg/dL (0.2-1.0); TOTAL PROTEIN 6.7 g/dL (6.4-8.2)
[2021-03-09] MEDS ORDERED: methylPREDNISolone SOD SUCC PF 125 MG/2 ML VIAL. ONE (15:23)
[2021-03-09] MEDS ORDERED: ONDANSETRON PF 4 MG/2 ML VIAL. IVP PRN (15:30)
[2021-03-09] MEDS ORDERED: methylPREDNISolone SOD SUCC PF 125 MG/2 ML VIAL. IV ONE (15:30)
[2021-03-09] MEDS: IPRATRPIUM/ALBUTEROL 0.5/2.5MG 3 ML NEBU. NEB SCH ×2 (16:00→20:21)
[2021-03-09] MEDS ORDERED: clonazePAM 0.5 MG TABLET PO PRN ×2 (16:57→17:15)
[2021-03-09 17:15] VITALS: BP 143/70
[2021-03-09] MEDS ORDERED: BENZ-8 PO (19:29)
[2021-03-09] MEDS ORDERED: CYCL-331 PO (19:29)
[2021-03-09] MEDS ORDERED: DIPH25CA58 PO (19:29)
[2021-03-09] MEDS ORDERED: TIOT18CA IH (19:33)
[2021-03-09] MEDS ORDERED: ALBU2.5V8 IH (19:33)
[2021-03-09] MEDS ORDERED: [UNRECOGNIZED DRUG - CODE] IV (20:17)
[2021-03-09] MEDS ORDERED: diphenhydrAMINE HCL 25 MG CAPSULE PO PRN (20:30)
[2021-03-09] MEDS: TEMAZEPAM 15 MG CAPSULE PO PRN (20:48)
[2021-03-09] MEDS: HYDROcodone/CHLORPHEN POLIS 5 ML SUS.ER.12H PO PRN (20:48)
[2021-03-09] MEDS: methylPREDNISolone SOD SUCC PF 125 MG/2 ML VIAL. IV SCH (21:51)
[2021-03-09] MEDS: CYCLOBENZAPRINE 10 MG TABLET. PO SCH ×2 (21:52→22:00)
[2021-03-09 22:10] VITALS: BP 108/65
[2021-03-10] VITALS (10 sets, daily range): BP systolic 105–138; BP diastolic 54–102
[2021-03-10] MEDS ORDERED: IPRATRPIUM/ALBUTEROL 0.5/2.5MG 3 ML NEBU. ONE (05:08)
[2021-03-10] MEDS: IPRATRPIUM/ALBUTEROL 0.5/2.5MG 3 ML NEBU. NEB SCH ×4 (05:11→20:21)
[2021-03-10] MEDS: CYCLOBENZAPRINE 10 MG TABLET. PO SCH ×3 (05:58→21:12)
[2021-03-10] MEDS: methylPREDNISolone SOD SUCC PF 125 MG/2 ML VIAL. IV SCH ×3 (05:58→21:12)
[2021-03-10] MEDS: HYDROcodone/CHLORPHEN POLIS 5 ML SUS.ER.12H PO PRN ×2 (08:18→21:12)
[2021-03-10] MEDS: OXYBUTYNIN CHLORIDE 5 MG TABLET PO SCH ×2 (08:19→21:12)
[2021-03-10] MEDS: SERTRALINE 100 MG TABLET. PO SCH (08:19)
[2021-03-10] MEDS: clonazePAM 0.5 MG TABLET PO SCH (08:19)
[2021-03-10] MEDS: PANTOPRAZOLE 40 MG TABLET. PO SCH (08:19)
[2021-03-10] MEDS: FLUTICASONE 50MCG/NASAL SPRAY 16GM BOTTLE. NS SCH (08:19)
[2021-03-10] MEDS ORDERED: NON FORMULARY ITEM (Tiotropium Bromide (Spiriva) 18 MCG) IH SCH (09:00)
--- NOTE | 2021-03-10 12:23 | HP ---
ADMIT DATE: 03/09/2021 ATTENDING PHYSICIAN: Dr. Crook. CHIEF COMPLAINT: Shortness of breath. HISTORY OF PRESENT ILLNESS: The patient is a 75-year-old female admitted to the ED with a gradual worsening of dyspnea for the last week. She has had exertional dyspnea. No fevers or COVID exposure. Workup in the ED, chest x-ray demonstrated advanced COPD with hyperexpansion of airways, flattening of the diaphragms. No decompensation of cardiac status. She is admitted then with exacerbation of COPD. Unfortunately, she continues to smoke. PAST MEDICAL HISTORY: Significant for underlying depression, anxiety, COPD, non-Hodgkin's lymphoma and breast cancer. She also has gastroesophageal reflux disease. PAST SURGICAL HISTORY: Wrist and breast surgery FAMILY HISTORY: Father of suicide at age 82. Mom of COPD at age 81. SOCIAL HISTORY: No alcohol use. She is and lives with her . ALLERGIES: SHE HAS ALLERGIES TO CHANTIX, EXACT REACTION IS UNCLEAR. MEDICATIONS: Her current medicines reviewed. Current medicines include albuterol, clonazepam, Flexeril, fluticasone, omeprazole, oxybutynin, Zoloft, and Spiriva. REVIEW OF SYSTEMS: Significant for dyspnea with minimal exertion. No recent travel. No fever or COVID exposure. All other systems reviewed and turned to be negative. PHYSICAL EXAMINATION: GENERAL: When I saw her, this is a pleasant female. VITAL SIGNS: Her initial vital signs showed a blood pressure of 112/54, pulse is 92 and regular. She was afebrile, oxygen saturation 94% on room air. HEENT: Head is without trauma. Pupils are reactive. Sclerae nonicteric. Oropharynx clear. NECK: Supple, no bruits identified. LUNGS: Diffuse wheezing bilaterally. CARDIOVASCULAR: Showed distant heart tones. No gallops. ABDOMEN: Soft. EXTREMITIES: Showed no cyanosis or edema. NEUROLOGIC: Findings focally intact. SKIN: Warm and dry. PERTINENT LABORATORY STUDY: Chemistry panel unremarkable. Nonfasting blood sugar 100. Hemoglobin maintained at 12.0 g/dL with a white count of 4400. Chest x-ray as noted. COPD changes, hyperexpansion, flattening diaphragm, no acute infiltrates identified. ASSESSMENT: 1. A 75-year-old female with exacerbation of chronic obstructive pulmonary disease. 2. Acute on chronic respiratory failure. 3. Underlying depression with anxiety. 4. History of breast cancer and prior history of non-Hodgkin's lymphoma. PLAN: 1. Admit to the inpatient unit. 2. Supplemental oxygen. 3. Empiric corticosteroids. 4. Diet as tolerated. 5. Continue home meds. 6. Schedule nebulizer therapy. TYRELL/ALLA DR: Rocío TID: [id number] CC: LISSETH BERNARDO MD
[2021-03-10] MEDS: TEMAZEPAM 15 MG CAPSULE PO PRN (21:12)
[2021-03-10] MEDS: diphenhydrAMINE HCL 25 MG CAPSULE PO SCH (21:13)
[2021-03-11 00:13] VITALS: BP 119/68
[2021-03-11] MEDS: IPRATRPIUM/ALBUTEROL 0.5/2.5MG 3 ML NEBU. NEB SCH ×4 (05:11→21:20)
[2021-03-11] MEDS: methylPREDNISolone SOD SUCC PF 125 MG/2 ML VIAL. IV SCH ×3 (05:34→21:20)
[2021-03-11] MEDS: CYCLOBENZAPRINE 10 MG TABLET. PO SCH ×3 (05:34→21:21)
[2021-03-11 05:44] VITALS: BP 136/68
[2021-03-11] MEDS: OXYBUTYNIN CHLORIDE 5 MG TABLET PO SCH ×2 (07:48→21:20)
[2021-03-11] MEDS: PANTOPRAZOLE 40 MG TABLET. PO SCH (07:48)
[2021-03-11] MEDS: SERTRALINE 100 MG TABLET. PO SCH (07:48)
[2021-03-11] MEDS: clonazePAM 0.5 MG TABLET PO SCH (07:48)
[2021-03-11] MEDS: diphenhydrAMINE HCL 25 MG CAPSULE PO SCH ×2 (07:48→21:21)
[2021-03-11] MEDS: HYDROcodone/CHLORPHEN POLIS 5 ML SUS.ER.12H PO PRN (07:49)
[2021-03-11] MEDS: FLUTICASONE 50MCG/NASAL SPRAY 16GM BOTTLE. NS SCH (07:49)
[2021-03-11 08:00] VITALS: BP 111/65
[2021-03-11 11:11] LABS: BASO % 0 % (0-3); EOS % 0 % (0-3); HEMATOCRIT 36.9 % (36.0-47.0); HEMOGLOBIN 11.9 g/dL (12.0-15.5); LYMPH # 0.6 x10^3/uL (1.0-4.8); LYMPH % 4 % (24-48); MEAN CORPUSCULAR HEMOGLOBIN 31 pg (25-35); MEAN CORPUSCULAR HGB CONC 32 g/dL (31-37); MEAN CORPUSCULAR VOLUME 95 fL (79-100); MONO # 0.6 x10^3/uL (0.0-1.1); MONO % 4 % (0-9); NEUT # 13.9 x10^3uL (1.8-7.7); NEUT % 92 % (31-73); PLATELET COUNT 240 x10^3/uL (140-400); RED BLOOD COUNT 3.87 x10^6/uL (3.50-5.40); RED CELL DISTRIBUTION WIDTH 14.7 % (11.5-14.5); WHITE BLOOD COUNT 15.1 x10^3/uL (4.0-11.0)
[2021-03-11 11:13] LABS: ALBUMIN 3.1 g/dL (3.4-5.0); ALBUMIN/GLOBULIN RATIO 0.9 (1.0-1.7); CALCIUM 8.7 mg/dL (8.5-10.1); CREATININE 0.8 mg/dL (0.6-1.0); GFR 69.6; POTASSIUM 4.9 mmol/L (3.5-5.1); TOTAL BILIRUBIN 0.2 mg/dL (0.2-1.0); TOTAL PROTEIN 6.7 g/dL (6.4-8.2)
[2021-03-11 11:31] VITALS: BP 105/63
[2021-03-11 14:47] VITALS: BP 113/67
[2021-03-11] MEDS ORDERED: ACETAMINOPHEN 325 MG TABLET PO PRN (15:15)
[2021-03-11 16:49] LABS: % BANDS 6 % (0-9); % EOS 1 % (0-5); % LYMPHS 4 % (24-48); % MONOS 4 % (0-10); % SEGS 85 % (35-66); PLT ESTIMATE ADEQUATE (ADEQUATE)
[2021-03-11 21:17] VITALS: BP 124/65
--- NOTE | 2021-03-12 01:20 | PN ---
DATE: 03/11/2021 SUBJECTIVE: The patient is a 75-year-old female patient who was admitted with COPD exacerbation and was started on Solu-Medrol, nebulized albuterol and Atrovent. When I saw her today, she continued to have cough, is mostly dry, hacking, will have chest tightness and wheezing that is very easily audible even without the stethoscope. PHYSICAL EXAMINATION:. GENERAL: When I examined her, she was resting slightly propped up in bed, in no apparent respiratory distress. She is somewhat pale, but no jaundice, cyanosis or thyromegaly. No jugular venous distention, no lower limb edema. VITAL SIGNS: Her heart rate was 72, blood pressure was 113/67, temperature 97.8, respiratory rate 20, and oxygen saturation was 94% on room air. HEAD, EYES, EARS, NOSE AND THROAT: Normocephalic, atraumatic. NECK: Supple. HEART: Showed normal first and second heart sounds, no gallop, murmur. CHEST: Shows central trachea, equal bilateral expansion, air entry, ____with diffuse bilateral rhonchi, wheezing. I could not appreciate any crepitation. ABDOMEN: Scaphoid, soft, nontender. NEUROLOGIC: She was grossly intact. LABORATORY DATA: This morning showed a white cell count of 15,000, hemoglobin 12, hematocrit 36, MCV 95 and platelet count 240,000. Her serum sodium was 139, potassium 4.9, chloride 104, bicarbonate 30, anion gap of 5, BUN 21, creatinine 0.8. Estimated GFR was 69 mL per minute. Her glucose 158, calcium was 8.7. Total bilirubin, AST, ALT, alkaline phosphatase were normal. Total protein was 6.7, albumin was 3.1. Urinalysis essentially unremarkable. Her chest x-ray showed that she has markedly hyperinflated lungs. The heart is not enlarged. There is no pneumothorax, no effusion. There is no airspace interstitial disease. ASSESSMENT AND PLAN: In summary, this is a 75-year-old female patient with COPD exacerbation. Unfortunately, she continues to smoke. I have had a lengthy discussion with that. Meanwhile, we will continue with IV Solu-Medrol, nebulized albuterol and Atrovent. I will discontinue the cough suppressant, add Mucinex and will evaluate her and see how she does tomorrow. She will also require a 6-minute walk as she is using her oxygen only at nighttime. MENDEZ DR: Leodan TID: [id number]
[2021-03-12 06:36] VITALS: BP 137/67
[2021-03-12] MEDS: CYCLOBENZAPRINE 10 MG TABLET. PO SCH ×2 (06:37→14:00)
[2021-03-12] MEDS: methylPREDNISolone SOD SUCC PF 125 MG/2 ML VIAL. IV SCH ×2 (06:38→14:41)
[2021-03-12 06:46] LABS: ALBUMIN 2.9 g/dL (3.4-5.0); ALBUMIN/GLOBULIN RATIO 0.9 (1.0-1.7); CALCIUM 8.2 mg/dL (8.5-10.1); CREATININE 0.7 mg/dL (0.6-1.0); GFR 81.1; POTASSIUM 4.8 mmol/L (3.5-5.1); TOTAL BILIRUBIN 0.1 mg/dL (0.2-1.0); TOTAL PROTEIN 6.2 g/dL (6.4-8.2)
[2021-03-12 06:54] LABS: HEMATOCRIT 34.8 % (36.0-47.0); HEMOGLOBIN 11.6 g/dL (12.0-15.5); RED BLOOD COUNT 3.68 x10^6/uL (3.50-5.40); RED CELL DISTRIBUTION WIDTH 14.5 % (11.5-14.5); WHITE BLOOD COUNT 11.9 x10^3/uL (4.0-11.0)
[2021-03-12] MEDS: IPRATRPIUM/ALBUTEROL 0.5/2.5MG 3 ML NEBU. NEB SCH ×5 (07:52→23:28)
[2021-03-12] MEDS ORDERED: NICOTINE 7MG PATCH. TD SCH (09:00)
[2021-03-12] MEDS: FLUTICASONE 50MCG/NASAL SPRAY 16GM BOTTLE. NS SCH (09:04)
[2021-03-12] MEDS: diphenhydrAMINE HCL 25 MG CAPSULE PO SCH ×2 (09:05→19:58)
[2021-03-12] MEDS: clonazePAM 0.5 MG TABLET PO SCH (09:05)
[2021-03-12] MEDS: OXYBUTYNIN CHLORIDE 5 MG TABLET PO SCH ×2 (09:05→19:58)
[2021-03-12] MEDS: PANTOPRAZOLE 40 MG TABLET. PO SCH (09:05)
[2021-03-12] MEDS: SERTRALINE 100 MG TABLET. PO SCH (09:05)
[2021-03-12 11:52] VITALS: BP 138/74
[2021-03-12 14:49] VITALS: BP 124/68
[2021-03-12] MEDS ORDERED: NICOTINE 7MG PATCH. TD PRN (16:00)
[2021-03-12] MEDS ORDERED: CYCLOBENZAPRINE 10 MG TABLET. PO PRN (16:00)
[2021-03-12 19:34] VITALS: BP 129/74
[2021-03-12] MEDS: TEMAZEPAM 15 MG CAPSULE PO PRN (19:57)
[2021-03-12] MEDS: methylPREDNISolone SOD SUCC PF 40 MG/ML VIAL. IV SCH (19:57)
[2021-03-12 21:26] VITALS: BP 124/69
[2021-03-12] MEDS ORDERED: IPRATRPIUM/ALBUTEROL 0.5/2.5MG 3 ML NEBU. NEB ONE (23:45)
--- NOTE | 2021-03-13 00:15 | PN ---
DATE: 03/12/2021 SUBJECTIVE: The patient is resting propped up in bed, continued to have cough that is mostly dry and chest tightness and wheezing. PHYSICAL EXAMINATION: GENERAL: When I examined her, she was pale, but no jaundice, cyanosis or thyromegaly. No jugular venous distention, no lower limb edema. VITAL SIGNS: Heart rate was 84, blood pressure is 124/68, temperature was 98.3, respiratory rate was 20 and oxygen saturation was only 86% on room air. HEAD, EYES, EARS, NOSE AND THROAT: Normocephalic, atraumatic. NECK: Supple. HEART: Showed normal first and second heart sounds, no gallop, murmur. CHEST: Shows central trachea, equal bilateral chest expansion, air entry with diffuse bilateral rhonchi. I could not appreciate any crepitation, although slightly better than yesterday. ABDOMEN: Slightly distended, soft, nontender. NEUROLOGIC: She is awake, alert, responding appropriately. All cranial nerves intact. She moves without difficulty. Her intake was 1300, no output was recorded. LABORATORY DATA: This morning showed a white cell count 11,900, hemoglobin 12, hematocrit 35, MCV 95 and platelet count of 107,000. Her chemistry showed a serum sodium 140, potassium 4.8, chloride 106, bicarbonate 30, anion gap of 4, BUN 21, creatinine 0.7. Estimated GFR was 81 mL per minute. Her glucose was down to 31, calcium was 8.2. Total bilirubin, AST, ALT, alkaline phosphatase were normal. ASSESSMENT: 1. Acute on chronic hypoxic respiratory failure. 2. Chronic obstructive pulmonary disease exacerbation. PLAN: To continue with IV Solu-Medrol. Continue with bronchodilator. Continue with Protonix. I will evaluate her again tomorrow, if she remains stable and improved we can discharge her tomorrow. I will cut down her steroids to 40 mg twice a day and will discharge her on a tapering course of steroids. GURINDER DR: Leodan TID: [id number]
[2021-03-13] MEDS ORDERED: IPRATRPIUM/ALBUTEROL 0.5/2.5MG 3 ML NEBU. NEB ONE (05:00)
[2021-03-13 07:43] VITALS: BP 115/75
[2021-03-13] MEDS: diphenhydrAMINE HCL 25 MG CAPSULE PO SCH (07:44)
[2021-03-13] MEDS: PANTOPRAZOLE 40 MG TABLET. PO SCH (07:44)
[2021-03-13] MEDS: methylPREDNISolone SOD SUCC PF 40 MG/ML VIAL. IV SCH (07:45)
[2021-03-13] MEDS: FLUTICASONE 50MCG/NASAL SPRAY 16GM BOTTLE. NS SCH (07:45)
[2021-03-13] MEDS: OXYBUTYNIN CHLORIDE 5 MG TABLET PO SCH (07:45)
[2021-03-13] MEDS: SERTRALINE 100 MG TABLET. PO SCH (07:45)
[2021-03-13] MEDS: clonazePAM 0.5 MG TABLET PO SCH (07:45)
[2021-03-13] MEDS ORDERED: BENZOCAINE/MENTHOL LOZNGE 18'S BOX. PO PRN (08:00)
[2021-03-13] MEDS: IPRATRPIUM/ALBUTEROL 0.5/2.5MG 3 ML NEBU. NEB SCH (10:52)
[2021-03-13 11:17] VITALS: BP 113/68
--- NOTE | 2021-03-13 14:09 | DISCH ---
HOME HEALTH DISCHARGE/MEDS DISCHARGE INFORMATION: Discharge Date: March 13, 2021 Final Diagnosis: Problems Medical Problems: (1) COPD exacerbation Status: Acute Condition on Discharge: Stable CODE STATUS: Code Status: Full HOME HEALTH: Face to Face: I certify this patient is under my care and that I, or a nurse practitioner or physician's hotel administrative assistant working with me, had a face to face encounter that meets the physician face to face encounter requirements with this patient on 03/13/2021 Medical Condition(s): COPD Physical Therapy For: Evalulation/Treatment Occupational Therapy For: Evaluation/Treatment POST DISCHARGE ORDERS: Activity Instructions for Disc: Activity as tolerated DIET AFTER DISCHARGE: Regular CERTIFICATION STATEMENT: Certification Statement: Based on the above finding, I certify that this patient is confined to the home and needs intermittent senior care care, physical therapy and/or speech therapy, or continues to need occupational therapy.~ This patient is under my care, and I have initiated the establishment of the plan of care.~ This patient will be followed by myself or a community physician who will periodically review the plan of care. DISCHARGE MEDICATIONS: Home Meds Reported Medications Methylprednisolone Sod Succ (SOLU-MEDROL) 500 Mg Vial, 60 MG IV Q8HRS for COPD, EACH 03/09/21 Albuterol Sulfate (PROAIR HFA INHALER) 8.5 Gm Hfa.aer.ad, 2 PUFF IH PRN Q6HRS PRN for wheezing for 21 Days, #1 INHALER 0 Refills 03/09/21 Tiotropium [place] (SPIRIVA) 18 Mcg Cap.w.dev, 18 MCG IH DAILY for copd 03/09/21 Diphenhydramine Hcl (BENADRYL) 25 Mg Capsule, 1 CAP PO PRN BID PRN for ALLERGIES for 30 Days, CAP 0 Refills 03/09/21 Cyclobenzaprine Hcl (CYCLOBENZAPRINE HCL) 10 Mg Tablet, 1 TAB PO Q8HRS for muscle spasms, #90 TAB 03/09/21 Fluticasone Propionate (FLUTICASONE PROPIONATE NASAL SPRAY) 16 Gm [place].susp, 2 SPR NS DAILY for unknown, #1 INHALER 11 Refills 04/14/20 Clonazepam (CLONAZEPAM) 0.5 Mg Tablet, 1 TAB PO DAILY for 1/2 tab daily, #30 TAB 04/14/20 Oxybutynin Chloride (OXYBUTYNIN CHLORIDE) 5 Mg Tablet, 10 MG PO DAILY for unknown, TAB 04/14/20 Sertraline Hcl (ZOLOFT) 100 Mg Tablet, 1 TAB PO DAILY for unknown, #30 TAB 5 Refills 04/14/20 Omeprazole (OMEPRAZOLE) 20 Mg Capsule.dr, 1 CAP PO DAILY for unknown, #30 CAP 5 Refills 04/14/20 JEMIMA CHAMPAGNE MD March 13, 2021 14:09
--- NOTE | 2021-03-13 21:07 | DS ---
DATE OF DISCHARGE: 03/13/2021 HOSPITAL COURSE: The patient is a 75-year-old female patient who was admitted with worsening shortness of breath, cough that has been dry. She has dyspnea, is worse on exertion, but denies any phlegm or hemoptysis. Denied any chills, rigors or fever. Her chest x-ray showed that she has marked emphysematous changes in both lungs with flattening of the diaphragms. She was started on IV steroids together with bronchodilators and she initially had severe bronchospasm that has gradually improved. In fact, this morning, she was resting flat in bed, in no apparent distress. PHYSICAL EXAMINATION: GENERAL: When I examined her, she looked pale; no jaundice, cyanosis or thyromegaly. No jugular venous distention. No limb edema. VITAL SIGNS: Her heart rate was 91, blood pressure is 113/68, temperature 98.8, respiratory rate was 16, and oxygen saturation was 97% on 3 liters of oxygen. HEENT: Examination of the head, eyes, ears, nose, and throat shows normocephalic, atraumatic. NECK: Supple. HEART: Normal first and second heart sounds, no gallop or murmur. CHEST: Showed central trachea, equally reduced expansion, reduced air entry, vesicular sounds. I could not appreciate any crepitation or rhonchi. ABDOMEN: Scaphoid, soft, nontender. NEUROLOGIC: She was grossly intact. Her intake was 1000, no output was recorded. LABORATORY DATA: Showed a white cell count 11,900, hemoglobin 11, hematocrit 34, MCV 95 and platelet count 207,000. Her chemistry showed a serum sodium of 140, potassium 4.8, chloride 106, bicarbonate 30, anion gap of 4, BUN 21, creatinine 0.7. Estimated GFR was 81 mL per minute. Her glucose was 131, calcium was 8.2. Total bilirubin, AST, ALT, alkaline phosphatase were normal. Total protein was 6.2, albumin was 2.9. DISCHARGE MEDICATIONS: The patient was discharged home to continue on albuterol sulfate 2 puffs every 6 hours as needed, clonazepam 0.5 mg, she takes half tablet daily, Flexeril 10 mg every 8 hours as needed, diphenhydramine 25 mg twice a day as needed, Flonase nasal spray 2 sprays to each nostril once a day. She is on omeprazole 20 mg daily, oxybutynin chloride 10 mg daily, sertraline/Zoloft 100 mg daily, and tiotropium bromide 1 inhalation once a day. She was also discharged on a tapering course of steroids in the form of prednisone 40 mg once a day for 3 days, 30 mg once a day for 3 days, 20 mg once a day for 3 days, and 10 mg once a day for 3 days. FINAL DISCHARGE DIAGNOSES: Acute on chronic hypoxic respiratory failure, chronic obstructive pulmonary disease exacerbation. NGOC DR: Leodan TID: [id number]
== END 2021-03-13 14:39 | disposition home health service (06) | DRG 189 ==
LOC: ER 13:34 → ICU 15:26 → ER 17:00 → 1 SOUTH 03-11 12:46
PROVIDERS: ADMIT Hospitalist; ATTEND Hospitalist
DX: J96.21 Acute and chronic respiratory failure with hypoxia (principal); J44.1 Chronic obstructive pulmonary disease with (acute) exacerbation; F17.200 Nicotine dependence, unspecified, uncomplicated; F41.8 Other specified anxiety disorders; Z82.5 Family history of asthma and other chronic lower respiratory diseases; Z85.3 Personal history of malignant neoplasm of breast; Z85.72 Personal history of non-Hodgkin lymphomas; F32.9 Major depressive disorder, single episode, unspecified; K21.9 Gastro-esophageal reflux disease without esophagitis; Z88.8 Allergy status to other drugs, medicaments and biological substances
CPT/HCPCS: 36415; 71045; 80053; 81001; 82947; 83880; 84484; 85007; 85025; 85027; 93005; 94640; 96374; 99406; J2920; J2930; Q0163; 97116; 97530; 99285-25

== ENCOUNTER 2021-05-02 10:28 | Emergency (ER) | payer MEDICARE, BC ==
[~2021-05-02] VITALS: Ht 170.2 cm; Wt 58.8 kg
[~2021-05-02 10:28] MED LIST changes: +BENZ-8 PO; +CYCL-331 PO; +DIPH25CA58 PO; +TIOT18CA IH; +[UNRECOGNIZED DRUG - CODE] IV
--- NOTE | 2021-05-02 10:34 | PHYS DOC ---
Past History Past Medical History: Anxiety, Cancer, COPD, Depression, GERD, Other Additional Past Medical Histor: Non hodgkins lymphoma, breast cancer, OAB Past Surgical History: Other Additional Past Surgical Histo: right wrist, breast surgery Smoking: Non-smoker Alcohol Use: Rarely Drug Use: None Adult General HPI HPI Patient is a 75-year-old female presenting via EMS for shortness of breath. Onset was several days ago. Recent change in weather and humidity has made breathing worse, patient has utilized all home maintenance inhalers, as needed oxygen, and has been using rescue albuterol inhaler every 2 hours without significant improvement. Denies any fever, chest pain, ripping tearing sensation in chest, hemoptysis or productive cough. Timing of symptoms has been constant since onset and worsening. Reports last exacerbation of COPD was in March that required her to be hospitalized, that was last time she received antibiotics. She continues to smoke daily Review of Systems Review of Systems Fourteen body systems of review of systems have been reviewed. See HPI for pertinent positives and negative responses, other godfrey all other systems are negative, non-pertinent or non-contributory Allergies Allergies Allergies Coded Allergies Type Severity Reaction Last Updated Verified varenicline Allergy Intermediate Unknown 08/19/14 Yes Physical Exam Physical Exam Constitutional: Well developed, well nourished, in moderate respiratory distress with increased accessory muscle use noted in neck and abdomen but is otherwise non-toxic in appearance. HENT: Normocephalic, atraumatic, bilateral external ears normal, oropharynx moist, no oral exudates, nose normal. Eyes: PERRLA, EOMI, conjunctiva normal, no discharge. Neck: Normal range of motion, no tenderness, supple, no stridor. Cardiovascular: Heart rate regular, sinus rhythm, no murmurs rubs or gallops Lungs & Thorax: Moderate respiratory distress on arrival with audible wheezing without auscultation, copious wheezing in all lung lobes during auscultation, accessory muscle use of neck and abdomen noted Abdomen: Bowel sounds normal, soft, no tenderness, no masses, no pulsatile masses. Nonsurgical abdomen, no peritoneal signs Skin: Warm, dry, no erythema, no rash. Back: No tenderness, no CVA tenderness. Extremities: No tenderness, no cyanosis, no clubbing, ROM intact, no edema. Neurologic: Alert and oriented X 3, grossly normal motor & sensory function, no focal deficits noted. Psychologic: Anxious affect and mood Current Patient Data Vital Signs Vital Signs Date Time Temp Pulse Resp B/P (MAP) Pulse Ox O2 Delivery O2 Flow Rate FiO2 05/02/21 10:35 98.5 94 36 129/90 (103) 79 Room Air 05/02/21 10:40 3.0 Vital Signs Date Time Temp Pulse Resp B/P (MAP) Pulse Ox O2 Delivery O2 Flow Rate FiO2 05/02/21 10:40 94 Nasal Cannula 3.0 05/02/21 10:35 98.5 94 36 129/90 (103) Lab Results Laboratory Tests Test 05/02/21 10:40 White Blood Count 6.5 x10^3/uL Red Blood Count 4.17 x10^6/uL Hemoglobin 13.2 g/dL Hematocrit 39.8 % Mean Corpuscular Volume 95 fL Mean Corpuscular Hemoglobin 32 pg Mean Corpuscular Hemoglobin Concent 33 g/dL Red Cell Distribution Width 14.3 % Platelet Count 207 x10^3/uL Neutrophils (%) (Auto) 60 % Lymphocytes (%) (Auto) 23 % Monocytes (%) (Auto) 8 % Eosinophils (%) (Auto) 7 % Basophils (%) (Auto) 1 % Neutrophils # (Auto) 3.9 x10^3uL Lymphocytes # (Auto) 1.5 x10^3/uL Monocytes # (Auto) 0.5 x10^3/uL Eosinophils # (Auto) 0.5 x10^3/uL Basophils # (Auto) 0.1 x10^3/uL Sodium Level 143 mmol/L Potassium Level 4.2 mmol/L Chloride Level 108 mmol/L Carbon Dioxide Level 30 mmol/L Anion Gap 5 Blood Urea Nitrogen 10 mg/dL Creatinine 0.8 mg/dL Estimated GFR (Cockcroft-Gault) 69.6 Glucose Level 109 mg/dL Calcium Level 8.6 mg/dL Troponin I Quantitative < 0.017 ng/mL Current Medications Medications (Trade) Dose Ordered Sig/Ashly Route PRN Reason Start Time Stop Time Status Last Admin Dose Admin Albuterol/ Ipratropium (Duoneb) 3 ml STK-MED ONCE .ROUTE 05/02/21 10:35 05/02/21 10:35 DC Albuterol/ Ipratropium (Duoneb) 3 ml 1X ONCE NEB 05/02/21 10:45 05/02/21 10:46 DC 05/02/21 10:44 Methylprednisolone Sodium Succinate (SOLU-Medrol 125MG VIAL) 125 mg 1X ONCE IV 05/02/21 10:45 05/02/21 10:46 DC 05/02/21 10:49 Acetaminophen (Tylenol) 650 mg 1X ONCE PO 05/02/21 11:15 05/02/21 11:16 05/02/21 11:10 EKG EKG EKG ordered and interpreted by myself at 1101 hrs. as sinus rhythm at 70 bpm, unremarkable intervals, no axis deviation, no obvious ischemic findings, no STEMI Radiology/Procedures Radiology/Procedures EXAM: Chest, single view. HISTORY: Shortness of breath. COMPARISON: 03/09/2021 FINDINGS: A frontal view of the chest is obtained. There is no consolidation, pleural effusion or pneumothorax. There is hyperinflation likely due to emphysema. There is a stable cardiac silhouette. There is a midthoracic compression fracture with vertebroplasty changes. IMPRESSION: Emphysema. No acute pulmonary finding. Electronically signed by: Remedios Puentes MD (05/02/2021 11:09 AM) [id number] Heart Score C/O Chest Pain: No HEART Score for Chest Pain: HEART Score for Chest Pain Response (Comments) Value History Slighlty/Non-Suspicious 0 ECG Normal 0 Age > 65 2 Risk Factors >3 Risk Factors or Hx CAD 2 Troponin < Normal Limit 0 Total 4 Risk Factors: Risk Factors: DM, Current or recent (<one month) smoker, HTN, HLP, family history of CAD, obesity. Risk Scores: Risk Factors: DM, Current or recent (<one month) smoker, HTN, HLP, family history of CAD, obesity. Course & Med Decision Making Course & Med Decision Making Airway patent, in moderate respiratory distress on arrival with audible wheezes without auscultation, IV access and vitals obtained concerning for room air hypoxia at 79% and tachypnea Supplemental oxygen and x1 DuoNeb treatment with 125 mg IV Solu-Medrol administered with significant improvement in symptoms HPI and physical exam consistent with acute bronchitis without factors requiring need for antibiotics. ER intervention grossly unremarkable Patient reassessed numerous times by healthcare providers while in ER and patient continues to report continued improvement in symptoms. She feels like she is ready to go home I disclosed potential for further diagnostic work-up and/or potential need for hospitalization for further inpatient medical management but patient has all pertinent inhalers, supplemental oxygen etc. at home and request to go home and trial this on her own Patient educated extensively on pulmonary hygiene and need to stop tobacco use. I educated her on taking her pulse ox frequently and potential need for continuous oxygen use at low doses to maintain optimal saturation and severe COPD patient to avoid over oxygenation As disclosed, patient has increased shortness of breath but no increased sputum production or purulence and joint decision was made to discharge home with steroid burst and incentives spirometry with continued pulmonary hygiene instructions Strict return precautions discussed with good understanding by patient and at bedside, all questions and concerns addressed prior to your departure Dragon Disclaimer Dragon Disclaimer This electronic medical record was generated, in whole or in part, using a voice recognition dictation system. Departure Departure: Impression: Primary Impression: COPD with acute bronchitis Additional Impression: Acute and chronic respiratory failure with hypoxia Disposition: HOME / SELF CARE / HOMELESS Condition: IMPROVED Referrals: LISSETH BERNARDO MD (PCP) Patient Instructions: Chronic Obstructive Pulmonary Disease Additional Instructions: You were seen for a COPD exacerbation that does not require antibiotic use. Please continue your current regimen for symptom control and if prescribed any medications during your ED visit today, take them as prescribed until completion or your primary doctor changes your medications. 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 Return to the ED if you develop worsening cough, shortness of breath, fever > 101, chest pain, or any other new or concerning symptoms. Scripts Prednisone (PREDNISONE) 20 Mg Tablet 40 MG PO DAILY for bronchitis for 5 Days, #10 TAB Prov: DIAMANTE QIU DO 05/02/21 Problem Qualifiers DIAMANTE QIU DO May 02, 2021 10:34
[2021-05-02] MEDS ORDERED: IPRATRPIUM/ALBUTEROL 0.5/2.5MG 3 ML NEBU. ONE (10:35)
[2021-05-02] MEDS ORDERED: IPRATRPIUM/ALBUTEROL 0.5/2.5MG 3 ML NEBU. NEB ONE (10:45)
[2021-05-02] MEDS ORDERED: methylPREDNISolone SOD SUCC PF 125 MG/2 ML VIAL. IV ONE (10:45)
[2021-05-02 10:58] LABS: BASO # 0.1 x10^3/uL (0.0-0.2); BASO % 1 % (0-3); EOS # 0.5 x10^3/uL (0.0-0.7); EOS % 7 % (0-3); HEMATOCRIT 39.8 % (36.0-47.0); HEMOGLOBIN 13.2 g/dL (12.0-15.5); LYMPH # 1.5 x10^3/uL (1.0-4.8); LYMPH % 23 % (24-48); MEAN CORPUSCULAR HEMOGLOBIN 32 pg (25-35); MEAN CORPUSCULAR HGB CONC 33 g/dL (31-37); MEAN CORPUSCULAR VOLUME 95 fL (79-100); MONO # 0.5 x10^3/uL (0.0-1.1); MONO % 8 % (0-9); NEUT # 3.9 x10^3uL (1.8-7.7); NEUT % 60 % (31-73); PLATELET COUNT 207 x10^3/uL (140-400); RED BLOOD COUNT 4.17 x10^6/uL (3.50-5.40); RED CELL DISTRIBUTION WIDTH 14.3 % (11.5-14.5); WHITE BLOOD COUNT 6.5 x10^3/uL (4.0-11.0)
--- NOTE | 2021-05-02 11:02 | EKG ---
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
[2021-05-02 11:05] LABS: CALCIUM 8.6 mg/dL (8.5-10.1); CREATININE 0.8 mg/dL (0.6-1.0); GFR 69.6; POTASSIUM 4.2 mmol/L (3.5-5.1)
--- NOTE | 2021-05-02 11:12 | RAD ---
EXAM: Chest, single view. HISTORY: Shortness of breath. COMPARISON: 03/09/2021 FINDINGS: A frontal view of the chest is obtained. There is no consolidation, pleural effusion or pne umothorax. There is hyperinflation likely due to emphysema. There is a stable cardiac silhouette. The re is a midthoracic compression fracture with vertebroplasty changes. IMPRESSION: Emphysema. No acute pulmonary finding. Electronically signed by: Remedios Puentes MD (05/02/2021 11:09 AM) [id number]
[2021-05-02] MEDS ORDERED: ACETAMINOPHEN 325 MG TABLET PO ONE (11:15)
[2021-05-02] MEDS ORDERED: PRED20TA PO (11:50)
[2021-05-02 12:00] VITALS: BP 125/69
== END 2021-05-02 12:05 | disposition home or self-care (01) ==
LOC: ER 10:28
DX: J20.9 Acute bronchitis, unspecified (principal); J44.0 Chronic obstructive pulmonary disease with (acute) lower respiratory infection; J96.21 Acute and chronic respiratory failure with hypoxia; K21.9 Gastro-esophageal reflux disease without esophagitis; F41.9 Anxiety disorder, unspecified
CPT/HCPCS: 36415; 71045; 80048; 84484; 85025; 93005; 94640; 96374; 99285; G0238; J2930

== ENCOUNTER → 2021-08-11 | Outpatient (CLI) | payer MEDICARE, BC ==
[~2021-08-11] MED LIST changes: +PRED20TA PO
--- NOTE | 2021-08-11 12:43 | RAD ---
EXAM: Lumbar spine, 5 views. HISTORY: Pain. COMPARISON: None. FINDINGS: 5 views of the lumbar spine are obtained. There are hypoplastic T12 ribs and 5 nonrib-beari ng lumbar segments. There is dextroscoliosis centered at L2. There is 7 mm grade 1 anterolisthesis of L5 on S1. There is 4 mm retrolisthesis of L1 on L2. There is multilevel endplate remodeling and face t arthropathy. There is a chronic appearing minimal compression deformity of L4 and chronic appearing moderate wedge compression deformity of T11. There is suspected bone demineralization. There is part ial visualization of a compression fracture and vertebroplasty changes at T8. There is a moderate to large amount colonic gas and stool. IMPRESSION: 1. Mild chronic appearing compression fracture of L4 and moderate chronic appearing compression fract ure of T11. There is also a compression fracture with vertebroplasty changes at T8, partially include d on the [id number]. 2. Multilevel degenerative change. 3. Lumbar scoliosis and mild listhesis at the aforementioned levels. Electronically signed by: Remedios Puentes MD (08/11/2021 12:40 PM) [id number]
== END ==
LOC: RAD 11:47
PROVIDERS: ATTEND Specialist
DX: S22.060A Wedge compression fracture of T7-T8 vertebra, initial encounter for closed fracture (principal); M47.816 Spondylosis without myelopathy or radiculopathy, lumbar region; M43.17 Spondylolisthesis, lumbosacral region; Q06.1 Hypoplasia and dysplasia of spinal cord; M41.86 Other forms of scoliosis, lumbar region; X58.XXXA Exposure to other specified factors, initial encounter; Y93.89 Activity, other specified; Y92.89 Other specified places as the place of occurrence of the external cause; Y99.8 Other external cause status
CPT/HCPCS: 72110

== ENCOUNTER → 2021-09-02 | Outpatient (CLI) | payer MEDICARE, BC ==
[~2021-09-02] MED LIST changes: -CYCL-331 PO; +CYCL10TA19 PO
--- NOTE | 2021-09-02 12:05 | RAD ---
EXAM: DUAL ENERGY X-RAY ABSORPTIOMETRY (DEXA). HISTORY: Postmenopausal screening. FINDINGS: The lowest measured T-score is -3.8 in the lumbar spine, based on a bone mineral density of 0.718 g/cm^2. Refer to the worksheets for full detail. There has been a 19.4 percent decrease in density of the lumbar spine and 25.6 percent decrease in de nsity of the right hip compared to a study performed 12/15/2004. IMPRESSION: 1. Osteoporosis. Bone mineral density yields a T-score of -2.5 or less. Fracture risk is high. 2. FRAX report: Not calculated. METHODOLOGY: Dual energy x-ray absorptiometry was performed to measure bone mineral density. The foll owing analysis is based on the 2019 Official Positions of the International Society for Clinical Dens itometry: Measurements of the hips and the average of L1-L4 are preferred. When the spine and/or hip cannot be feasibly measured or interpreted, or in the setting of hyperparathyroidism, distal radial bone minera l density may be measured. The lumbar spine T-score is based on the average bone mineral density of L1-L4. In the setting of art ifact or anatomic abnormality, some lumbar levels may be excluded, and the remaining levels used for calculation. A single lumbar level is not used for diagnosis, and if only a single level is available for assessment, another anatomic site will be used to assign a diagnosis. The hip T-score is based on the bone mineral density measurement of the femoral neck or total proxima l femur of either side, whichever is lowest. Bilateral mean values are not used for diagnosis. The forearm T-score is derived from 33% of the distal radius of the nondominant forearm. Electronically signed by: Remedios Puentes MD (09/02/2021 12:03 PM) [id number]
--- NOTE | 2021-09-02 12:19 | RAD ---
EXAM: Lumbar spine, 5 views. HISTORY: Pain. COMPARISON: None. FINDINGS: 5 views of the lumbar spine are obtained. There is mild lumbar dextrocurvature. There is mi ld lumbar hyperlordosis. There is mild retrolisthesis of L1 on L2. There is minimal grade 1 anterolis thesis of L5 on S1. There is multilevel endplate remodeling. There is chronic appearing minimal decre ased vertebral body height at L4. There is facet arthropathy predominantly at L5-S1. IMPRESSION: 1. Multilevel degenerative change, described in detail above. 2. No acute osseous finding. Electronically signed by: Remedios Puentes MD (09/02/2021 12:16 PM) [id number]
== END ==
LOC: DXRAD 11:31
PROVIDERS: ATTEND Specialist
DX: M81.0 Age-related osteoporosis without current pathological fracture (principal); M47.817 Spondylosis without myelopathy or radiculopathy, lumbosacral region
CPT/HCPCS: 72110; 77080

== ENCOUNTER → 2021-12-14 | Outpatient (CLI) | payer MEDICARE, BC ==
--- NOTE | 2021-12-14 17:19 | RAD ---
Bilateral digital screening 2-D and 3-D (digital breast tomosynthesis) mammogram: Reason for examination: Routine screening. Comparison: Mammogram from 11/11/2020. Interpretation was made with the benefit of CAD. FINDINGS: Breast density: Category B. There are scattered areas of fibroglandular density. No suspicious breast mass, malignant appearing calcifications, or architectural distortion is seen. IMPRESSION: No evidence of malignancy. Assessment: BI-RADS 1. Negative. Recommendation: Routine screening mammograms. The patient will receive a letter with the results in the mail. Patient information will be entered i nto the mammography reminder system with a target recall date for the next mammogram. A reminder darrell er will be generated. Electronically signed by: Sveta Perez MD (12/14/2021 5:17 PM) [id number]
== END ==
LOC: MAMMO 10:24
PROVIDERS: ATTEND Specialist
DX: Z12.31 Encounter for screening mammogram for malignant neoplasm of breast (principal)
CPT/HCPCS: 77063; 77067

== ENCOUNTER → 2022-01-15 | Outpatient (CLI) | payer MEDICARE, BC ==
--- NOTE | 2022-01-15 17:00 | RAD ---
US PELVIS W/TV Clinical Indication: Reason: PMB, DARK DISCHARGE / Spl. Instructions: / History: Comparison: Pelvic ultrasound July 05, 2014. TECHNIQUE: Real-time ultrasound imaging of the pelvis using transabdominal and transvaginal window is performed. Findings: Uterus measures 5.6 x 4.1 x 2.6 cm and is heterogeneous. No focal mass. The endometrial stripe is normal measuring 3 mm. There are prominent bilateral parauterine vessels. There is a right ovarian cyst measuring 1.1 x 0 0.7 to 0.9 cm. There is normal blood flow in the righ t ovary. The left ovary is not identified perhaps due to overlying bowel gas. The left ovary was not seen on p rior study. Also correlate to surgical history. No evidence of adnexal mass. No pelvic free fluid is identified. IMPRESSION: 1. The endometrial stripe is normal. 2. There is a small right ovary cyst. Finding is abnormal in a female patient of this age but is lik myles benign. Consider ultrasound follow-up in 12 months. Electronically signed by: Kev Mcneal MD (01/15/2022 4:58 PM) [id number]
== END ==
LOC: US 13:45
PROVIDERS: ATTEND Specialist
DX: N83.201 Unspecified ovarian cyst, right side (principal); N95.0 Postmenopausal bleeding
CPT/HCPCS: 76830; 76856

== ENCOUNTER → 2022-03-24 | Outpatient (CLI) | payer MEDICARE, BC ==
--- NOTE | 2022-03-25 08:35 | RAD ---
US RENAL BILAT History: Urinary incontinence Comparison: None. Technique: Sonographic examination of the kidneys and bladder. Findings: Right kidney: 9.0 cm length. An anechoic structure at the hilum measuring 1.4 cm diameter is favored to represent an extrarenal pelvis. Parapelvic cyst is also possible. There is no caliectasis to sugge st hydronephrosis. Left kidney: 9.2 cm length. No focal lesion, calculi or hydronephrosis. Bladder: Completely decompressed and not visualized. Aorta/IVC: Visualized portions are unremarkable. Other: No ascites. Impression: 1. Nonvisualized completely decompressed bladder. 2. Findings favored to represent right extrarenal pelvis versus parapelvic cyst. Electronically signed by: Giovanni Tapia MD (03/25/2022 8:32 AM) [id number]
== END ==
LOC: US 13:28
PROVIDERS: ATTEND Specialist
DX: N39.498 Other specified urinary incontinence (principal)
CPT/HCPCS: 76770